=== PATIENT | male | born 1980 | race Caucasian/White ===

== ENCOUNTER 2016-12-24 17:50 | Emergency (ER) | payer MEDICAID ==
[~2016-12-24] VITALS: Ht 182.9 cm; Wt 86.0 kg
[2016-12-24 17:55] VITALS: BP 139/89; PULSE 55; RESP 16; TEMP 97.9; O2SAT 100
--- NOTE | 2016-12-24 18:47 | PD ---
HPI Chief Complaint: Abdominal Pain Time Seen by Provider: 18:39 Travel History International Travel<30 days: No Contact w/Intl Traveler<30days: No Traveled to known affect area: No History of Present Illness HPI This is a 36-year-old male who presents today with points of right lower quadrant pain. Patient states that he feels a sliding sensation in his right groin area. He denies any fevers, chills. He denies any nausea vomiting diarrhea. He denies any bulging sensation in his groin. He states the pain is worse when he lifts items. He states he picks up his young child and he feels the discomfort in the right groin area. There is no dysuria, urgency, frequency. There are no other complaints time my examination. [facility] Past Medical History Medical History: Denies Significant Hx Social History Alcohol Use: No Tobacco Use: Yes Substance Use: No Allergies-Medications (Allergen,Severity, Reaction): Coded Allergies: No Known Allergies (Unverified , 12/24/16) Reported Meds & Prescriptions Reported Meds & Active Scripts Active No Active Prescriptions or Reported Medications Review of Systems Except as stated in HPI: all other systems reviewed are Neg General / Constitutional: No: Fever, Chills HENT: No: Headaches Cardiovascular: No: Chest Pain or Discomfort, Palpitations Respiratory: No: Cough, Shortness of Breath Gastrointestinal: Positive: Abdominal Pain (right lower groin), No: Nausea, Vomiting, Diarrhea Genitourinary: No: Frequency, Dysuria, Incontinence Musculoskeletal: No: Weakness, Pain Neurologic: No: Weakness, Dizziness, Headache Physical Exam Narrative GENERAL: Well-nourished, well-developed patient, in no acute distress. SKIN: Focused skin assessment warm/dry. HEAD: Normocephalic/atraumatic. EYES: No scleral icterus. No injection or drainage. NECK: Supple, trachea midline. No JVD or lymphadenopathy. CARDIOVASCULAR: Regular rate and rhythm without murmurs, gallops, or rubs. RESPIRATORY: Breath sounds equal bilaterally. No accessory muscle use. GASTROINTESTINAL: Abdomen soft, non-tender, nondistended. 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 He does have tenderness to deep palpation over the inguinal canal. No testicular pain. No penile discharge. MUSCULOSKELETAL: No cyanosis, or edema. BACK: Nontender without obvious deformity. No CVA tenderness. NEUROLOGICAL: Awake and alert. Cranial nerves II through XII intact. Motor grossly within normal limits. Five out of 5 muscle strength in all muscle groups. Normal speech. Data Data Last Documented VS Vital Signs Date Time Temp Pulse Resp B/P (MAP) Pulse Ox O2 Delivery O2 Flow Rate FiO2 12/24/16 17:55 97.9 55 16 139/89 (106) 100 MDM Medical Decision Making Medical Screen Exam Complete: Yes Emergency Medical Condition: Yes Differential Diagnosis Right inguinal hernia versus appendicitis versus UTI Narrative Course 36-year-old male presents today with right lower quadrant discomfort. The patient has white I suspect is a inguinal hernia. He does not have any evidence of incarceration. Patient has no fevers, chills, nausea vomiting diarrhea. Blood work is pending at this time. I've informed him that if his blood work is negative for acute process. He will be discharged with a recommendation of purchasing a Truss for comfort. The patient be signed out to Dr. Pacheco, physician replacing this physician who will make a disposition pending labs. Diagnosis Primary Impression: right inguinal pain Additional Instructions: Purchase and wear a Truss for comfort. If pain continues, follow up with a general surgeon. Scripts No Active Prescriptions or Reported Meds Toby Jaramillo MD Dec 24, 2016 18:47
[2016-12-24] MEDS ORDERED: MORPHINE SULFATE 4 MG/ML INJ IV PUSH ONE (20:00)
--- NOTE | 2016-12-24 20:02 | PD ---
Physical Exam Narrative Received sign out to follow up labs, UA and reevaluate. 36yo M here with right lower abdominal/inguinal region pain for 3 days. Pain is intermittent and worst with heavy lifting. Pt works in [employer] and does a lot of heavy lifting. Did not take anything for pain. Denies any fever, nausea or vomiting. Labs reviewed, no leukocytosis. LFTs normal. UA negative for leukocyte. WBC less than 1. Culture not indicated. Pt given morphine 4mg IV and reevaluated at bedside. Abdominal/inguinal pain has resolved. Pt is well appearing. Strict return precautions given. Data Data Last Documented VS Vital Signs Date Time Temp Pulse Resp B/P (MAP) Pulse Ox O2 Delivery O2 Flow Rate FiO2 12/24/16 21:16 53 18 126/75 (92) 99 Room Air 12/24/16 17:55 97.9 Orders Orders Complete Blood Count With Diff (12/24/16 19:59) Comprehensive Metabolic Panel (12/24/16 19:59) Urinalysis - C+S If Indicated (12/24/16 19:59) Morphine Inj (Morphine Inj) (12/24/16 20:00) Labs Laboratory Tests Test 12/24/16 21:12 White Blood Count 7.2 TH/MM3 Red Blood Count 4.38 MIL/MM3 Hemoglobin 11.9 GM/DL Hematocrit 36.5 % Mean Corpuscular Volume 83.4 FL Mean Corpuscular Hemoglobin 27.3 PG Mean Corpuscular Hemoglobin Concent 32.7 % Red Cell Distribution Width 13.3 % Platelet Count 245 TH/MM3 Mean Platelet Volume 8.0 FL Neutrophils (%) (Auto) 47.8 % Lymphocytes (%) (Auto) 41.9 % Monocytes (%) (Auto) 6.1 % Eosinophils (%) (Auto) 3.8 % Basophils (%) (Auto) 0.4 % Neutrophils # (Auto) 3.4 TH/MM3 Lymphocytes # (Auto) 3.0 TH/MM3 Monocytes # (Auto) 0.4 TH/MM3 Eosinophils # (Auto) 0.3 TH/MM3 Basophils # (Auto) 0.0 TH/MM3 CBC Comment DIFF FINAL Differential Comment Urine Color LIGHT-YELLOW Urine Turbidity CLEAR Urine pH 6.0 Urine Specific [place] 1.006 Urine Protein NEG mg/dL Urine Glucose (UA) NEG mg/dL Urine Ketones NEG mg/dL Urine Occult Blood NEG Urine Nitrite NEG Urine Bilirubin NEG Urine Urobilinogen LESS THAN 2.0 MG/DL Urine Leukocyte Esterase NEG Urine WBC LESS THAN 1 /hpf Urine Mucus FEW /lpf Microscopic Urinalysis Comment CULT NOT INDICATED Blood Urea Nitrogen 7 MG/DL Creatinine 0.76 MG/DL Random Glucose 93 MG/DL Total Protein 6.7 GM/DL Albumin 3.3 GM/DL Calcium Level 8.5 MG/DL Alkaline Phosphatase 101 U/L Aspartate Amino Transf (AST/SGOT) 12 U/L Alanine Aminotransferase (ALT/SGPT) 19 U/L Total Bilirubin 0.2 MG/DL Sodium Level 142 MEQ/L Potassium Level 4.2 MEQ/L Chloride Level 110 MEQ/L Carbon Dioxide Level 27.8 MEQ/L Anion Gap 4 MEQ/L Estimat Glomerular Filtration Rate 117 ML/MIN MDM Supervised Visit with JUAN: No Diagnosis Primary Impression: right inguinal pain Patient Instructions: General Instructions Departure Forms: Tests/Procedures Additional Instruction: Purchase and wear a Truss for comfort. If pain continues, follow up with a general surgeon. Med/Other Pt SpecificInfo: Prescription(s) given Scripts Acetaminophen (Tylenol) 325 Mg Tab 650 MG PO Q6H Y for PAIN SCALE 1 TO 4, #20 TAB 0 Refills Prov: PachecoElizabeth 12/24/16 Disposition: 01 DISCHARGE HOME Condition: Stable Elizabeth Pacheco DO Dec 24, 2016 20:02
[2016-12-24 21:16] VITALS: BP 126/75; PULSE 53; RESP 18; O2SAT 99
[2016-12-24 21:30] LABS: BLOOD, URINE NEG (NEG); COMMENT (UR) CULT NOT INDICATED; CULTURE IF INDICATED CULT NOT INDICATED; GLUCOSE,URINE NEG (NEG); KETONE, URINE NEG (NEG); MUCUS URINE FEW /lpf (OCC); NITRITE,URINE NEG (NEG); URINE COLOR LIGHT-YELLOW (YELLW/STRAW)
[2016-12-24 21:48] LABS: AUTOMATED NEUTROPHIL # 3.4 TH/MM3 (1.8-7.7); BASOPHIL % 0.4 % (0.0-2.0); EOSINOPHIL # 0.3 TH/MM3 (0-0.4); EOSINOPHIL % 3.8 % (0.0-4.0); HEMATOCRIT 36.5 % (39.0-51.0); HEMO FLAGS DIFF FINAL; LYMPH % 41.9 % (9.0-44.0); MEAN CELL VOLUME 83.4 FL (80.0-100.0); MEAN CORPUSCULAR HEMOGLOBIN 27.3 PG (27.0-34.0); MEAN CORPUSCULAR HGB CONC 32.7 % (32.0-36.0); MONO % 6.1 % (0.0-8.0); NEUT % 47.8 % (16.0-70.0); PLATELET COUNT 245 TH/MM3 (150-450); RED BLOOD COUNT 4.38 MIL/MM3 (4.50-5.90); RED CELL DISTRIBUTION WIDTH 13.3 % (11.6-17.2); WHITE BLOOD COUNT 7.2 TH/MM3 (4.0-11.0)
[2016-12-24 21:53] LABS: ALT (GPT) 19 U/L (12-78); ANION GAP 4 MEQ/L (5-15); AST (GOT) 12 U/L (15-37); BICARBONATE 27.8 MEQ/L (21.0-32.0); BLOOD UREA NITROGEN 7 MG/DL (7-18); CHLORIDE 110 MEQ/L (98-107); GLOMERULAR FILTRATION RATE 117 ML/MIN (>89); POTASSIUM 4.2 MEQ/L (3.5-5.1); SODIUM (NA) 142 MEQ/L (136-145)
[2016-12-24 21:56] LABS: ALKALINE PHOSPHATASE 101 U/L (45-117); TOTAL BILIRUBIN ADULT 0.2 MG/DL (0.2-1.0)
[2016-12-24] MEDS ORDERED: TYLE325T PO (22:08)
== END 2016-12-24 22:17 | disposition home or self-care (01) ==
LOC: NEPE 17:50
DX: R10.31 Right lower quadrant pain (principal); F17.200 Nicotine dependence, unspecified, uncomplicated
CPT/HCPCS: 80053; 81001; 85025; 96374; 99284; J2270